=== PATIENT | male | born 1950 | race African-American/Black ===

== ENCOUNTER 2018-07-07 03:03 | Emergency (ER) | payer MEDICARE ==
[~2018-07-07] VITALS: Ht 193 cm; Wt 81.6 kg
[2018-07-07 03:08] VITALS: BP_SYST 145
--- NOTE | 2018-07-07 03:09 | NUR ---
Patient to ER H1 for evaluation. Side rails up.
--- NOTE | 2018-07-07 03:10 | NUR ---
Patient brought to ER in custody of law enforcement in handcuffs for medical clearance. Patient states he has many heart conditions. Patient states no chest pain or SOB at this time. No other symptoms or complaints.
--- NOTE | 2018-07-07 03:13 | NUR ---
DANIEL RANDALL Kw[place] at bedside for medical evaluation.
[2018-07-07 03:19] VITALS: BP_SYST 145
--- NOTE | 2018-07-07 03:19 | NUR ---
Patient given written and verbal discharge instructions and verbalizes understanding. ER MD discussed with patient the results and treatment provided. Patient in stable condition. ID arm band removed. No Rx given. Patient educated on pain management and to follow up with PMD. Pain Scale 0/10. Opportunity for questions provided and answered.
--- NOTE | 2018-07-07 03:20 | NUR ---
Patient seen leaving facility ambulating with steady gait in handcuffs in custody of law enforcement.
== END 2018-07-07 03:19 ==
LOC: SED 03:03
DX: Z02.89 Encounter for other administrative examinations (principal); I10 Essential (primary) hypertension; Z88.6 Allergy status to analgesic agent
CPT/HCPCS: 99283